=== PATIENT | female | born 1960 | race Caucasian/White ===

== ENCOUNTER 2021-06-16 15:30 | Emergency (ER) | payer BC ==
[~2021-06-16] VITALS: Ht 154.9 cm; Wt 100.0 kg
[2021-06-16] MEDS ORDERED: LOSARTAN POTASS50 MG PO (20:17)
[2021-06-16] MEDS ORDERED: METFORMIN HCL500 M1 PO (20:17)
[2021-06-16] MEDS ORDERED: BUMETANIDE1 MG PO (20:18)
[2021-06-16] MEDS ORDERED: LORTAB 1010 MG PO (21:28)
[2021-06-16] MEDS ORDERED: CYCLOBENZAPRINE10 MG PO (21:28)
[2021-06-16] MEDS ORDERED: MEDDOSEPAK PO (21:28)
[2021-06-16 21:53] VITALS: BP 166/72
== END 2021-06-16 22:08 | disposition home or self-care (01) | DRG 552 ==
LOC: ED 15:30
DX: M54.50 Low back pain, unspecified (principal); I10 Essential (primary) hypertension; E11.9 Type 2 diabetes mellitus without complications; Z79.84 Long term (current) use of oral hypoglycemic drugs; X50.0XXA Overexertion from strenuous movement or load, initial encounter; Y93.F2 Activity, caregiving, lifting